=== PATIENT | female | born 1960 | race African-American/Black ===

== ENCOUNTER → 2017-02-01 | Outpatient (CLI) | payer BC ==
--- NOTE | 2017-02-01 16:27 | KCIC ---
Bone mineral density exam History: Postmenopausal, screening Comparison: None Findings: Bone mineral density examination utilizing DEXA was performed. Left hip bone mineral density of 0.837 g/cm2 corresponds with a T score -0.9, Z score -0.7. The bone mineral density of the lumbar spine was 0.812 g/cm2 which corresponds with a T-score of -2.1, Z score -1.9 . By World Congress on Osteoporosis criteria, a T score of 0 to-1 SD is considered to be within normal limits. A T score of -1 to -2.5 SD is considered osteopenia. A T score less than -2.5 SD is considered osteoporosis Impression: 1. There is osteopenia of the lumbar spine. Bone mineral density of the left hip is considered within normal limits. Electronically signed by: Rashel Garcia MD (02/01/2017 4:24 PM) [facility]-KCIC1
== END | disposition home or self-care (01) ==
LOC: KCIC DEXA 15:13
PROVIDERS: ATTEND Physician Assistant Surgical
DX: Z13.820 Encounter for screening for osteoporosis (principal); Z78.0 Asymptomatic menopausal state; M85.80 Other specified disorders of bone density and structure, unspecified site
CPT/HCPCS: 77080

== ENCOUNTER → 2018-10-14 | Outpatient (CLI) | payer BC ==
--- NOTE | 2018-10-15 09:49 | KCIC ---
RENAL COMPLETE BILATERAL History: Hematuria syndrome Comparison: None. Findings: Sonographic images of the kidneys and urinary bladder are submitted. Right kidney measured 10.6 x 4.5 x 4 cm. Left kidney measured 11.6 x 4.3 x 4.9 cm. There is no hydronephrosis of either kidney. Urinary bladder morphology is within normal limits. Patient voided to completion. Impression: 1. No significant abnormality is demonstrated. Electronically signed by: Rashel Garcia MD (10/14/2018 4:16 PM) [facility]-KCIC1
== END | disposition home or self-care (01) ==
LOC: KCIC US 15:02
PROVIDERS: ATTEND Family Medicine
DX: R31.9 Hematuria, unspecified (principal)
CPT/HCPCS: 76770

== ENCOUNTER → 2021-07-07 | Outpatient (CLI) | payer BC, OTHER ==
[~2021-07-07] MED LIST: ATOR10TA60 PO; CALC-31 PO; LACT1CAP37 PO; MECO10005 PO; MONT10TA49 PO; MULT-245 PO; OMEG1CAP38 PO; PHEN37.53 PO; TOPI25TA7 PO; TRIA50CA PO
--- NOTE | 2021-07-07 13:42 | RAD ---
EXAMINATION: Thyroid sonogram. INDICATION: Multinodular goiter. COMPARISON: Thyroid uptake scan dated 06/24/2021. Technique: Real-time grayscale and color Doppler imaging of the thyroid gland was performed per melissa col. Findings: The right thyroid lobe measures: 4.9 x 2.1 x 2.2 cm. The left thyroid lobe measures: 4.8 x 1.5 x 1.3 cm. The isthmus measures: 3.2 mm. The thyroid parenchyma is diffusely heterogeneous and contains multiple nodules. The largest nodules are listed below. Nodule #1: Maximum size: 2.5 cm Location: Inferior right thyroid lobe. Composition: Solid or almost completely solid (2 points) Echogenicity: Hyperechoic or isoechoic (1 point) Shape: Tveua-rvpr-mwkn (0 points) Margins: Ill-defined (0 points) Echogenic foci: None or large comet-tail artifacts (0 points) ACR TI-RADS total points: 3. ACR TI-RADS risk category: TR3 (3 points) - Mildly suspicious. FNA if ?2.5 cm. Follow if ?1.5 cm. Nodule #2: Maximum size: 2.3 cm Location: Right aspect of the thyroid isthmus. Composition: Solid or almost completely solid (2 points) Echogenicity: Hyperechoic or isoechoic (1 point) Shape: Dkfpf-xzri-lyur (0 points) Margins: Ill-defined (0 points) Echogenic foci: None or large comet-tail artifacts (0 points) ACR TI-RADS total points: 3. ACR TI-RADS risk category: TR3 (3 points) - Mildly suspicious. FNA if ?2.5 cm. Follow if ?1.5 cm. Nodule #3: Maximum size: 1.6 cm Location: Mid right thyroid lobe. Composition: Solid or almost completely solid (2 points) Echogenicity: Hyperechoic or isoechoic (1 point) Shape: Zrpnm-iqyw-cygb (0 points) Margins: Ill-defined (0 points) Echogenic foci: None or large comet-tail artifacts (0 points) ACR TI-RADS total points: 3. ACR TI-RADS risk category: TR3 (3 points) - Mildly suspicious. FNA if ?2.5 cm. Follow if ?1.5 cm. Nodule #4: Maximum size: 1.2 cm Location: Inferior left thyroid lobe. Composition: Solid or almost completely solid (2 points) Echogenicity: Hypoechoic (2 points) Shape: Kuzic-oojr-hmco (0 points) Margins: Ill-defined (0 points) Echogenic foci: Macrocalcifications (1 point) ACR TI-RADS total points: 5. ACR TI-RADS risk category: TR4 (4-6 points) - Moderately suspicious. FNA if ?1.5 cm. Follow if ?1 cm. Nodule #5: Maximum size: 0.6 cm Location: Mid right thyroid lobe. Composition: Solid or almost completely solid (2 points) Echogenicity: Hypoechoic (2 points) Shape: Avlrh-howi-qmbk (0 points) Margins: Ill-defined (0 points) Echogenic foci: None or large comet-tail artifacts (0 points) ACR TI-RADS total points: 3. ACR TI-RADS risk category: TR4 (4-6 points) - Moderately suspicious. FNA if ?1.5 cm. Follow if ?1 cm. IMPRESSION: 1. 2.5 cm nodule within the inferior right thyroid lobe. TI-RADS category 3: Fine-needle aspiration i s recommended. 2. 4 additional measurable thyroid nodules with sizes and TI-RADS categories described above. Sonogra phic follow-up is recommended based on ACR recommendations. ACR TI-RADS recommendations TR5 (?7 points) - FNA if ? 1cm, follow-up if 0.5 - 0.9 cm every year for 5 years TR4 (4-6 points) - FNA if ? 1.5cm, follow-up if 1 - 1.4 cm in 1, 2, 3 and 5 years TR3 (3 points)- FNA if ? 2.5cm, follow-up if 1.5 - 2.4 cm in 1, 3 and 5 years TR2 (2 points) & TR1 (0 points) - No FNA or follow-up *Decision to biopsy should include other considerations such as patient demographics and relevant cli nical information. Reference: TIRADS 2017 J Am Sabino Radiol 2017;14:587-595 Electronically signed by: Frida Garcia MD (07/07/2021 1:39 PM) [id number]
== END ==
LOC: US 12:22
PROVIDERS: ATTEND Family Medicine
DX: E05.20 Thyrotoxicosis with toxic multinodular goiter without thyrotoxic crisis or storm (principal)
CPT/HCPCS: 76536

== ENCOUNTER → 2021-08-30 | Outpatient (CLI) | payer BC, OTHER ==
--- NOTE | 2021-08-30 09:40 | RAD ---
EXAMINATION: ULTRASOUND-GUIDED FINE NEEDLE ASPIRATION RIGHT THYROID NODULE CLINICAL HISTORY: RIGHT THYROID COMPARISON: Thyroid ultrasound 07/07/2021 PROCEDURE: The risks, benefits, treatment options, potential complications, and personnel to be involved were di scussed with the patient. All questions were answered and consent was obtained. The patient indicated willingness to proceed. Ultrasound guidance was used to target the right thyroid nodule of interest. The neck was then steril eliseo prepped and draped. A time out was performed immediately prior to the start of the procedure with the procedural team, correctly identifying the patient name, date of , procedure, and site/side of procedure to be performed. Under ultrasound guidance, 1% lidocaine was administered at the skin and in the soft tissues along th e expected biopsy path. 4 separate passes were made into the nodule with a 22-gauge needle. To and fr o movement of the needle was performed in the nodule while aspiration was applied. 1 core biopsy samp le was also obtained with a 20-gauge Temno core biopsy needle. After all needles were removed, good hemostasis was achieved with light manual compression. No signif icant blood loss. No immediate complications were encountered. IMPRESSION: Successful ultrasound-guided fine needle aspiration of a right thyroid nodule. Electronically signed by: Oc Lynch DO (08/30/2021 9:37 AM) [id number]
--- NOTE | 2021-09-01 10:12 | PATHOLOGY ---
[facility] Accession Number: [id number] . 01 Material submitted: . thyroid gland - RIGHT THYROID NODULE INFERIOR 2.5 CM. Modifiers: right . 01 Clinical history: . RIGHT INFERIOR THYROID NODULE . 02 Diagnosis: Right inferior thyroid nodule, needle biopsy: - Few minute segments of thyroid tissue and blood clot containing several pigmented macrophages. See comment. (JPM:web applications developer; 08/31/2021) MBR 08/31/2021 1746 Local . 02 Comment: Sections of the right inferior thyroid nodule needle biopsy reveal a few minute fragments of thyroid tissue comprised of thyroid follicles, some of which contain eosinophilic colloid. The follicles are lined by bland appearing cuboidal cells having small round uniform nuclei. There are also a few segments of blood clot focally containing several pigmented macrophages. There are no features of papillary carcinoma present. (JPM:web applications developer; 08/31/2021) . 02 Electronically signed: . Richie Smith MD, Pathologist NPI- [id number] . 01 Gross description: . The specimen is received in formalin, labeled "Keny Naqvickelford, bx right inferior thyroid nodule". The specimen is additionally labeled on the requisition as, "right inferior thyroid nodule". Received are multiple, minute, ortiz-red, soft tissue core fragments, ranging in length from 0.1-0.3 cm, and measuring 0.1 cm in diameter. The entire tissue is divided into cassettes A1 and A2. The tissue may not survive processing. (JohanneGG; 08/30/2021) KENNETH/KENNETH 08/30/2021 1531 Local . 02 Pathologist provided ICD-10: E04.1 . 02 CPT . 563354 Specimen Comment: A courtesy copy of this report has been sent to [phone] Specimen Comment: Report sent to Specimen Comment: A duplicate report has been generated due to demographic updates. Performed at: 01 [facility] [address] [id number] MD Oliver Chandra MD Phone: [phone] Performed at: 02 [facility] [address] [place], [place] [id number] MD Richie Smith MD Phone: [phone]
--- NOTE | 2021-09-06 12:08 | PATHOLOGY ---
Note [facility] Accession Number: [id number] TESTS RESULT FLAG UNITS REF RANGE LAB Clinician Provided Cytology Information No. of containers..01 Other (Miscellaneous) Source: RT INFERIOR THYROID DIAGNOSIS: RT INFERIOR THYROID NEGATIVE FOR MALIGNANT CELLS. BETHESDA CATEGORY I. CYST FLUID ONLY. ABUNDANT RED BLOOD CELLS ARE PRESENT. COMMENT, THE FINE NEEDLE ASPIRATION REVEALS FEW THYROID FOLLICULAR CELLS ADMIXED WITH FOAMY MACROPHAGES. SUGGEST CLINICAL CORRELATION FEW TYROID FOLLICULAR CELLS ARE PRESENT AND THE MATERIAL MAY NOT BE INTERNET MARKETING COORDINATOR. Signed out by: Oliver Chandra MD, Pathologist NPI- [id number] Performed by: Jacqueline Lockett, Cash Teller ([facility]) Gross description: 60ML, OPAQUE RED, FLOATING M /LCS 08/31/2021 1821 Local FLAG LEGEND: L-Low Normal,H-High Normal,LL-Alert Low,HH-Alert High <-Panic Low,>-Panic High,A-Abnormal,AA-Critical Abnormal Performed at: [facility] [address] [place] [address] Oliver Chandra MD, Specimen Comment: A courtesy copy of this report has been sent to [phone] Specimen Comment: [id number], Specimen Comment: Report sent to , DR PHELAN / DR BEAULIEU Specimen Comment: A duplicate report has been generated due to demographic updates. Performed at: 01 [facility] [address] [facility] [address], [place], [place] [id number] MD Oliver Chandra MD Phone: [phone]
== END | disposition home or self-care (01) ==
LOC: US 08:30
PROVIDERS: ATTEND Surgery
DX: E04.1 Nontoxic single thyroid nodule (principal); Z79.899 Other long term (current) drug therapy
CPT/HCPCS: 10005; 88307; C1819